=== PATIENT | female | born 1960 | race Caucasian/White ===

== ENCOUNTER 2019-05-21 16:12 | Emergency (ER) | payer BC ==
[2019-05-21 16:43] VITALS: BP 168/100; PULSE 107
--- NOTE | 2019-05-21 17:46 | EDM.PDOC ---
ED HPI GENERAL MEDICAL PROBLEM - General Source of Information: Reports: Patient History Limitations: Reports: No Limitations Posterior Head Pain Score (Numeric/FACES): 6 Left Hand Pain Score (Numeric/FACES): 8 <Kandi Johnson - Last Filed: 05/21/19 17:50> <RosibelPrimitivo L - Last Filed: 05/22/19 07:36> - General Chief Complaint: Head Injury Stated Complaint: FELL DOWN STAIRS Time Seen by Provider: 05/21/19 16:39 - History of Present Illness INITIAL COMMENTS - FREE TEXT/NARRATIVE: No is a 58 year old female brought to the ED by her two daughters for evaluation after falling down some stairs, she is also c/o a burn to her left hand. She is an admitted alcoholic who drinks about a six pack a day, but since burning her hand 5 days ago, she has started drinking rum to help with the pain of the burn. She spilled some boiling water onto the back of her left hand and has well healing burn that encompasses most of the dorsal part of her left hand. According to her, because of this burn she was unable to hold onto the stairway railing and that is why she fell down to stairs today. She is unsure of how many stairs she fell down. She denies LOC and states she got up right away. She denies any headache, double or blurred vision. (Kandi Johnson) - Related Data Allergies Allergy/AdvReac Type Severity Reaction Status Date / Time lisinopril Allergy throat/tongue Verified 09/17/16 11:57 swelling Sulfa (Sulfonamide Allergy Hives Verified 09/17/16 11:57 Antibiotics) pink dye Allergy Cannot Uncoded 09/16/16 16:00 Remember Home Meds: Home Meds Metoprolol Tartrate [Lopressor] 100 mg PO Q12HR 08/14/16 [History] amLODIPine Besylate [Amlodipine Besylate] 5 mg PO DAILY 08/14/16 [History] Past Medical History - Past Health History Medical/Surgical History: Denies Medical/Surgical History Cardiovascular History: Reports: Hypertension Psychiatric History: Reports: Addiction, Anxiety - Past Surgical History Female Surgical History: Reports: Hysterectomy <Kandi Johnson - Last Filed: 05/21/19 17:50> Social & Family History - Tobacco Use Smoking Status *Q: Current Every Day Smoker Years of Tobacco use: 38 Packs/Tins Daily: 0.5 - Caffeine Use Caffeine Use: Reports: Soda <Kandi Johnson - Last Filed: 05/21/19 17:50> ED ROS GENERAL - Review of Systems Review Of Systems: See Below Constitutional: Reports: No Symptoms HEENT: Reports: No Symptoms Respiratory: Reports: No Symptoms Cardiovascular: Reports: No Symptoms Endocrine: Reports: No Symptoms GI/Abdominal: Reports: No Symptoms : Reports: No Symptoms Musculoskeletal: Reports: Hand Pain (5 day old burn to left hand) Skin: Reports: No Symptoms Neurological: Reports: No Symptoms Psychiatric: Reports: No Symptoms Hematologic/Lymphatic: Reports: No Symptoms Immunologic: Reports: No Symptoms <Kandi Johnson - Last Filed: 05/21/19 17:50> - Review of Systems Neurological: Denies: Headache, Numbness, Tingling, Trouble Speaking, Difficulty Walking, Weakness, Change in Speech <Primiitvo Gleason - Last Filed: 05/22/19 07:36> ED EXAM, HEAD INJURY - Physical Exam Exam: See Below Exam Limited By: Intoxication General Appearance: Alert, WD/WN, No Apparent Distress Head: Scalp Hematoma (to the occiptal part of her head) Nexus Criteria: Evidence of Intoxication Extremities: Normal Inspection, Normal Range of Motion, Non-Tender, No Pedal Edema, Normal Capillary Refill Neurologic: care program resident II-XII nml As Tested, No Motor/Sensory Deficits, Alert, Normal Mood/Affect, Oriented x 3 Skin: Normal Color, Warm/Dry - Burns Coma Score Best Eye Response (Burns): (4) Open Spontaneously Best Verbal Response (Burns): (5) Oriented Best Motor Response (Burns): (6) Obeys Commands <Kandi Johnson - Last Filed: 05/21/19 17:50> - Physical Exam Head: No: Scalp Lacerations, Scalp Abrasions, Scalp Ecchymosis, Judge's Sign, Facial Swelling, Facial Tenderness, Raccoon Eyes Eyes: Bilateral Eye: PERRL Neck: Non-Tender, Full Range of Motion Respiratory: No Respiratory Distress, Lungs Clear, Normal Breath Sounds Cardiovascular: Regular Rate, Rhythm <Primitivo Gleason Last Filed: 05/22/19 07:36> Course <Kandi Johnson - Last Filed: 05/21/19 17:50> <Primitivo Gleason - Last Filed: 05/22/19 07:36> - Vital Signs Last Recorded V/S: Last Vital Signs Temp 98.1 F 05/21/19 16:41 Pulse 107 H 05/21/19 16:41 Resp 20 05/21/19 16:41 BP 168/100 H 05/21/19 16:41 Pulse Ox 95 05/21/19 16:41 - Orders/Labs/Meds Labs: Laboratory Tests 05/21/19 Range/Units 17:10 Urine Color Yellow (Yellow) Urine Appearance Clear (Clear) Urine pH 6.0 (5.0-8.0) Ur Specific [place] 1.015 (1.005-1.030) Urine Protein 1+ H (Negative) Urine Glucose (UA) Negative (Negative) Urine Ketones Negative (Negative) Urine Occult Blood Negative (Negative) Urine Nitrite Negative (Negative) Urine Bilirubin Negative (Negative) Urine Urobilinogen 0.2 (0.2-1.0) Ur Leukocyte Esterase Negative (Negative) Urine RBC 0-5 (0-5) /hpf Urine WBC Not seen (0-5) /hpf Ur Squamous Epith Cells 0-5 (0-5) /hpf Urine Bacteria Rare (FEW) /hpf Urine Mucus Few (FEW) /hpf - Re-Assessments/Exams Free Text/Narrative Re-Assessment/Exam: 05/22/19 07:33 Initial hx and exam as documented by Mario Johnson, [employer] student. I agree with hx and exam as documented. I have also interviewed and examined patient. She has no Senior, no nausea, vomiting. She is moderately intoxicated. She is ambulatory without difficulty, normal speech pattern. Not interested in lying or sitting still. Wants to leave. Head CT very unlikely to be helpful. Discharge instr. as documented. (Primitivo Gleason) Departure <Kandi Johnson - Last Filed: 05/21/19 17:50> - Departure Time of Disposition: 17:46 Condition: Fair <Primitivo Gleason - Last Filed: 05/22/19 07:36> - Departure Disposition: Home, Self-Care 01 Clinical Impression: Fall, Scalp contusion, Alcohol intoxication - Discharge Information Instructions: Burn Care, Adult, [id number], Head Injury, Adult, [id number] , Fall Prevention in the Home, Adult Referrals: PCP,None [Primary Care Provider] - Forms: ED Department Discharge Additional Instructions: Avoid further alcohol this evening. Ice packs as needed for swelling. Tylenol if needed for pain. Follow up clinic as needed. Return to ED for severe headache, severe nausea, vomiting or if symptoms otherwise worsening in any way.
== END 2019-05-21 17:54 | disposition home or self-care (01) ==
LOC: JD.ED 16:12
DX: S00.03XA Contusion of scalp, initial encounter (principal); F10.129 Alcohol abuse with intoxication, unspecified; I10 Essential (primary) hypertension; F17.210 Nicotine dependence, cigarettes, uncomplicated; Z88.8 Allergy status to other drugs, medicaments and biological substances; Z88.2 Allergy status to sulfonamides; Z91.048 Other nonmedicinal substance allergy status; Z79.899 Other long term (current) drug therapy; W10.9XXA Fall (on) (from) unspecified stairs and steps, initial encounter
CPT/HCPCS: 81001; 99283

== ENCOUNTER 2021-12-11 09:03 | Emergency (ER) | payer BC ==
[2021-12-11] MEDS ORDERED: methylPREDNISolone Sodium Succinate 125 MG/2 ML SDV IVPUSH ONE (09:16)
[2021-12-11] MEDS ORDERED: HYDROmorphone 0.5 MG/0.5 ML Syringe IVPUSH ONE ×2 (09:16→12:54)
[2021-12-11] MEDS ORDERED: LORazepam 2 MG/ML SDV IVPUSH ONE (09:16)
[2021-12-11] MEDS ORDERED: Sodium Chloride 0.9% 10 ML Syringe FLUSH PRN (09:17)
[2021-12-11] MEDS ORDERED: Sodium Chloride 0.9% 1,000 ML IV SCH (09:30)
[2021-12-11 13:44] VITALS: BP 122/89; PULSE 78
== END 2021-12-11 13:44 | disposition home or self-care (01) ==
LOC: JD.ED 09:03 → SUPCPDRO 09:03 → JD.ED 13:44
DX: J02.9 Acute pharyngitis, unspecified (principal); R13.10 Dysphagia, unspecified; I10 Essential (primary) hypertension; Z88.2 Allergy status to sulfonamides; Z91.041 Radiographic dye allergy status; Z88.8 Allergy status to other drugs, medicaments and biological substances; Z79.899 Other long term (current) drug therapy; Z90.710 Acquired absence of both cervix and uterus; Z20.822 Contact with and (suspected) exposure to COVID-19
CPT/HCPCS: 36415; 80053; 80307; 85007; 85027; 86140; 87635; 87651; 96374; 96375; 96376; 99284; J1170; J2060; J2930; J3490; J7030; U0002

== ENCOUNTER 2021-12-11 17:51 | Emergency (ER) | payer BC ==
[2021-12-11] MEDS ORDERED: Sodium Chloride 0.9% 10 ML Syringe FLUSH PRN (17:55)
[2021-12-11] MEDS ORDERED: EPINEPHrine 1 MG/ML SDV IM ONE (17:56)
[2021-12-11] MEDS ORDERED: methylPREDNISolone Sodium Succinate 125 MG/2 ML SDV IVPUSH ONE (17:56)
[2021-12-11] MEDS ORDERED: diphenhydrAMINE 50 MG/ML SDV IVPUSH ONE (17:56)
[2021-12-11] MEDS ORDERED: Sodium Chloride 0.9% 1,000 ML IV SCH (18:30)
[2021-12-11 19:58] VITALS: BP 161/89; PULSE 113
== END 2021-12-11 19:40 ==
LOC: JD.ED 17:51
DX: T78.3XXA Angioneurotic edema, initial encounter (principal); I10 Essential (primary) hypertension; Z88.8 Allergy status to other drugs, medicaments and biological substances; Z88.2 Allergy status to sulfonamides
CPT/HCPCS: 36415; 80307; 85025; 86140; 96372; 96374; 96375; 99284; J0171; J0598; J1200; J2930; J3490; J7030

== ENCOUNTER 2022-01-17 12:45 | Day surgery (SDC) | payer BC ==
[~2022-01-17 12:45] MED LIST: Cefuroxime 10 MG/ML SYRINGE EYERT SCH; Lidocaine 1% PF 2 ML SDV INJECT SCH; Pilocarpine 4% Ophth Soln 15 ML Bot EYERT SCH; Polymyxin B/Trimethoprim 10 ML Bottle EYERT SCH
[2022-01-17] MEDS: Ofloxacin 0.3% Ophth Soln 5 ML Bottle EYERT SCH ×3 (13:14→14:40)
[2022-01-17] MEDS: Brimonidine 0.2% Ophth Soln 5 ML Bottle EYERT SCH ×3 (13:22→14:40)
[2022-01-17] MEDS: Phenylephrine 2.5% Ophth Soln 2 ML Bot EYERT SCH ×5 (13:26→14:24)
[2022-01-17] MEDS: Tropicamide 1% Ophth Soln 15 ML Bottle EYERT SCH ×4 (13:29→14:06)
[2022-01-17] MEDS: Tetracaine HCl/PF 0.5% 4 ML Bottle EYEBOTH SCH ×4 (14:11→14:30)
[2022-01-17 14:54] VITALS: BP 160/78; PULSE 75
== END 2022-01-17 14:51 | disposition home or self-care (01) ==
LOC: JD.SDS 12:45
PROVIDERS: ATTEND Ophthalmology
DX: H25.811 Combined forms of age-related cataract, right eye (principal); F41.9 Anxiety disorder, unspecified; I10 Essential (primary) hypertension; Z88.2 Allergy status to sulfonamides; Z88.8 Allergy status to other drugs, medicaments and biological substances; Z91.041 Radiographic dye allergy status
CPT/HCPCS: 66984; J0697; A9270-GY; V2632